=== PATIENT | male | born 1985 | race Caucasian/White ===

== ENCOUNTER 2021-06-07 20:34 | Emergency (ER) | payer OTHER ==
[~2021-06-07 20:34] MED LIST: KEFLEX CAP 500500 MG PO
[2021-06-07 21:36] LABS: HEMOGLOBIN 15.6 gm/dl (14.0-17.5); RED BLOOD COUNT 4.93 M/UL (4.20-5.50); WHITE BLOOD COUNT 8.7 K/UL (4.5-11.0)
[2021-06-07 21:56] LABS: BUN/CREATININE RATIO 11 (0-10)
[2021-06-07] MEDS ORDERED: CEFUROXIME500 MG PO (23:39)
[2021-06-07] MEDS ORDERED: MEDROL4 MG PO (23:39)
== END 2021-06-08 00:15 | disposition home or self-care (01) ==
LOC: ER1 20:34
PROVIDERS: Preventive Medicine Occupational Medicine
DX: K12.2 Cellulitis and abscess of mouth (principal)
CPT/HCPCS: 70491; 71260; 80053; 80307; 81001; 85025; 87086; 96374; 99283; J2930; Q9967